=== PATIENT | female | born 1965 | race Caucasian/White ===

== ENCOUNTER 2018-06-04 10:36 | Outpatient (CLI) | payer OTHER ==
--- NOTE | 2018-06-04 12:27 | RAD ---
SCOLIOSIS SURVEY: Technique: AP views of cervical, thoracic, and lumbar spine obtained for a total of three views. Indications: Congenital malformations of spine. Scoliosis survey. Chronic back pain. FINDINGS: There are degenerative changes in the thoracic spine with mild osteophytes seen laterally. Slight cur vature of the lower thoracic spine to the right measuring approximately 9 degrees with apex at T11-12 . Minimal curvature of the lumbar spine to the left measuring approximately 3 degrees. IMPRESSION: Degenerative changes in the thoracic spine. Mild curvature seen as described. POS: [facility]
== END 2018-06-04 10:37 | disposition home or self-care (01) ==
LOC: TBSIIMAG 10:36
PROVIDERS: ATTEND Neurological Surgery
DX: Q76.3 Congenital scoliosis due to congenital bony malformation (principal); M47.814 Spondylosis without myelopathy or radiculopathy, thoracic region; M43.9 Deforming dorsopathy, unspecified
CPT/HCPCS: 72081